=== PATIENT | female | born 1995 | race Caucasian/White ===

== ENCOUNTER 2025-04-14 13:45 | Inpatient (IN) | payer OTHER ==
[~2025-04-14] VITALS: Ht 167.6 cm; Wt 3.2 kg
[~2025-04-14 13:45] MED LIST: PROVENT1 EACH
[2025-04-14 15:41] VITALS: BP 139/79
[2025-04-14] MEDS ORDERED: RINGERS SOLUTION,LACTATED 1,000 ML IV SCH (16:00)
[2025-04-14 16:05] LABS: BASO % 0.2 % (0.1-1.2); EOS # 0.15 (0.04-0.54); EOS % 1.3 % (0.7-7.0); LYMPH # 1.33 (1.18-3.74); LYMPH % 11.6 % (19.3-53.1); MEAN PLATELET VOLUME 10.80 fl (9.4-12.4); MONO # 0.73 (0.24-0.82); MONO % 6.4 % (4.7-12.5); NEUT # 9.20 (1.56-6.13); NEUT % 80.0 % (34.0-71.1); RED CELL DISTRIBUTION WIDTH 13.0 % (11.6-14.4)
[2025-04-14 16:08] LABS: URINE APPEARANCE Cloudy; URINE BILIRRUBIN Negative (NEGATIVE); URINE COLOR Yellow; URINE GLUCOSE Negative (NEGATIVE); URINE KETONE Negative (NEGATIVE); URINE LEUKOCYTE Small; URINE NITRATE Negative; URINE PROTEIN Trace (NEGATIVE); URINE UROBILINOGEN 1.0 E.U./dl
[2025-04-14 16:11] LABS: URINE CAST 1.46 uL (0.0-1.40); URINE EPITHELIAL CELLS 105.2 uL (0.0-38.8); URINE RBC 21.1 uL (0.0-20.8); URINE WBC 210.9 uL (0.0-23.2)
[2025-04-14 16:40] LABS: INR < 0.93
[2025-04-14 16:42] LABS: TYPE CELLS SQUAMOUS; URINE BACTERIA > 9821.5 uL (0.0-1933); URINE BLOOD Trace; URINE MUCUS SCANT
[2025-04-14 16:43] LABS: URINE YEAST FEW /hpf
[2025-04-14 16:44] LABS: ALT/SGPT 17.0 U/L (12-78); AST/SGOT 15.0 U/L (15-37); BILIRUBIN TOTAL 0.3 mg/dL (0.3-1.2); BUN CREA RATIO 20.0 (7.0-25.0); CREATININE SERUM 0.64 mg/dL (0.55-1.02); GFR 109.71; GLOBULINA 4.1 G/DL (2.4-3.5); GLUCOSE FASTING 89.0 mg/dL (65-100); OSMOLALITY SERUM 275.0 MOSM/KG (275-295)
[2025-04-14] MEDS ORDERED: MISOPROSTOL 25 MCG TABLET ONE (17:11)
[2025-04-14] MEDS ORDERED: MISOPROSTOL 25 MCG TABLET VAG ONE (17:30)
[2025-04-14 19:11] VITALS: BP 115/68
[2025-04-15 04:33] VITALS: BP 99/63
[2025-04-15 07:07] VITALS: BP 125/71
[2025-04-15] MEDS ORDERED: OXYTOCIN 500 ML IV SCH (07:45)
[2025-04-15 11:39] VITALS: BP 115/73
[2025-04-15 15:40] VITALS: BP 121/61
[2025-04-15] MEDS ORDERED: AMPICILLIN SODIUM 2,000 MG VIAL ONE (15:59)
[2025-04-15] MEDS ORDERED: AMPICILLIN SODIUM 2,000 MG in 0.9 % SODIUM CHLORIDE 100 ML IV SCH (18:00)
[2025-04-15] MEDS ORDERED: CHLORHEXIDINE GLUCONATE 120 ML BOTTLE TP NR (20:15)
[2025-04-15] MEDS ORDERED: RINGERS SOLUTION,LACTATED 1,000 ML IV SCH (20:15)
[2025-04-15] MEDS ORDERED: OXYTOCIN 1,000 ML IV SCH (20:15)
[2025-04-15] MEDS ORDERED: ERYTHROMYCIN BASE OPHT 1GM EACH TUBE OP ONE (20:15)
[2025-04-15] MEDS ORDERED: PROMETHAZINE HCL 50 MG/ML AMPUL IV SCH (20:15)
[2025-04-15] MEDS ORDERED: METHYLERGONOVINE MALEATE 0.2 MG TABLET PO SCH (20:16)
[2025-04-15] MEDS ORDERED: ACETAMINOPHEN WITH CODEINE 1 UDTAB TABLET PO PRN (20:30)
[2025-04-15] MEDS ORDERED: SIMETHICONE 125 MG CAPSULE PO SCH (21:00)
[2025-04-15] MEDS ORDERED: MORPHINE SULFATE 4 MG/ML CARTRIDGE IV SCH (21:00)
[2025-04-15 21:29] LABS: BASO % 0.1 % (0.1-1.2); EOS # 0.03 (0.04-0.54); EOS % 0.2 % (0.7-7.0); LYMPH # 0.86 (1.18-3.74); LYMPH % 5.4 % (19.3-53.1); MEAN PLATELET VOLUME 10.30 fl (9.4-12.4); MONO # 0.71 (0.24-0.82); MONO % 4.5 % (4.7-12.5); NEUT # 14.13 (1.56-6.13); NEUT % 89.0 % (34.0-71.1); RED CELL DISTRIBUTION WIDTH 12.6 % (11.6-14.4)
[2025-04-15] MEDS ORDERED: AMPICILLIN SODIUM 1,000 MG VIAL ONE (23:50)
[2025-04-15] MEDS ORDERED: METHYLERGONOVINE MALEATE 0.2 MG/ML AMPUL ONE (23:50)
[2025-04-16 02:15] VITALS: BP 104/68
[2025-04-16 08:53] VITALS: BP 106/71
[2025-04-16] MEDS ORDERED: NAPROXEN 500 MG TABLET PO SCH (09:00)
[2025-04-16] MEDS ORDERED: METHYLERGONOVINE MALEATE 0.2 MG/ML AMPUL IM PRN (11:15)
[2025-04-16 16:52] VITALS: BP 99/66
[2025-04-17 00:52] VITALS: BP 122/75
[2025-04-17 08:00] VITALS: BP 116/74
[2025-04-17] MEDS ORDERED: DOCUSATE SODIUM 100MG CAP PO SCH (09:00)
[2025-04-17 14:03] VITALS: BP 134/72
[2025-04-17 16:00] VITALS: BP 115/78
[2025-04-18] VITALS: BP 130/66
[2025-04-18 04:00] VITALS: BP 115/73
[2025-04-18] MEDS ORDERED: NAPROXEN500 MG PO (09:04)
[2025-04-18] MEDS ORDERED: COLACE100 MG PO (09:04)
[2025-04-18 09:55] VITALS: BP 121/80
== END 2025-04-18 20:46 | disposition home or self-care (01) | DRG 788 ==
LOC: LDR 15:37 → OB/GYN 15:37
PROVIDERS: ADMIT Obstetrics & Gynecology; ATTEND Obstetrics & Gynecology
PROC: 3E0P7VZ Introduction of Hormone into Female Reproductive, Via Natural or Artificial Opening (ICD-10-PCS; 2025-04-14)
PROC: 4A1HXCZ Monitoring of Products of Conception, Cardiac Rate, External Approach (ICD-10-PCS; 2025-04-14)
PROC: 3E033VJ Introduction of Other Hormone into Peripheral Vein, Percutaneous Approach (ICD-10-PCS; 2025-04-15)
PROC: 10D00Z1 Extraction of Products of Conception, Low, Open Approach (ICD-10-PCS; principal; 2025-04-15 21:30)
DX: O82 Encounter for cesarean delivery without indication (principal); O62.0 Primary inadequate contractions; Z3A.39 39 weeks gestation of pregnancy; Z37.0 Single live birth